=== PATIENT | female | born 1995 | race Caucasian/White ===

== ENCOUNTER 2017-04-29 15:12 | Emergency (ER) | payer SELFPAY ==
[2017-04-29 15:29] VITALS: BP 145/70
[2017-04-29] MEDS ORDERED: METOCLOPRAMIDE HCL ORAL SOLN 10 MG/10 ML UDCUP PO ONE (16:44)
[2017-04-29] MEDS ORDERED: MAG HYDROX/AL HYDROX/SIMETH SUSP 30 ML UDCUP PO ONE (16:44)
[2017-04-29] MEDS ORDERED: LIDOCAINE 2% VISCOUS SOLN 20 ML UDCUP PO ONE (16:44)
[2017-04-29] MEDS ORDERED: FAMOTIDINE 20 MG TABLET PO ONE (16:44)
--- NOTE | 2017-04-29 16:44 | ER Document Report ---
ED Medical Screen (RME) - General Chief Complaint: Abdominal Pain Stated Complaint: ABDOMEN PAIN Time Seen by Provider: 04/29/17 16:38 Notes: rectal bleeding on/off for one month, only when she wipes. denies h/o hemorrhoids. abdominal pain on/off for a couple of months, described as cramping. doesnt have it everyday, notices it the most when she is sleeping. denies chest pain, heart burn, n/v/d/c. last BM: yesterday, nl has been taking motrin for 800mg as needed mayb e once a day but is not taking it daily TRAVEL OUTSIDE OF THE [place] IN LAST 30 DAYS: No - Related Data Allergies/Adverse Reactions: No Known Allergies Allergy (Verified 04/29/17 15:28) Past Medical History Renal/ Medical History: Denies: Hx Peritoneal Dialysis Physical Exam - Vital signs Vitals: Temp Pulse Resp BP Pulse Ox 98.6 F 61 20 145/70 H 99 04/29/17 15:28 04/29/17 15:28 04/29/17 15:28 04/29/17 15:28 04/29/17 15:28 Course - Vital Signs Vital signs: Temp Pulse Resp BP Pulse Ox 98.6 F 61 20 145/70 H 99 04/29/17 15:28 04/29/17 15:28 04/29/17 15:28 04/29/17 15:28 04/29/17 15:28
[2017-04-29] MEDS ORDERED: DICYCLOMINE HCL 20 MG TABLET PO ONE (18:32)
--- NOTE | 2017-04-29 19:15 | ER Document Report ---
HPI - HPI Patient complains to provider of: abdominal pain and occaisional rectal bleeding Pain Level: 3 Context: patient is a 21 year old female who presents to the ED complaining of abdominal cramping and rectal pain that has been on/off for 4-5 weeks. denies n/v/d/c. Admits to firm stools with occasional blood on the toilet paper but otherwise denies rectal pain when she isnt trying to have a BM. LMP was last week. admits to taking motrin for her menstrual cramps and as needed. states her belly pain is irritated with that. States she has intermittent cramping that does not last longer than a minute. denies any heart burn or chest pain - CARDIOVASCULAR Cardiovascular: DENIES: Chest pain - DERM Skin Color: Normal Past Medical History - Social History Smoking Status: Never Smoker Chew tobacco use (# tins/day): No Frequency of alcohol use: Occasional Drug Abuse: None Family History: Reviewed & Not Pertinent Patient has suicidal ideation: No Patient has homicidal ideation: No Renal/ Medical History: Denies: Hx Peritoneal Dialysis Surgical Hx: Negative - Immunizations Hx Diphtheria, Pertussis, Tetanus Vaccination: No Vertical Provider Document - CONSTITUTIONAL Notes: PHYSICAL EXAM GENERAL: Alert, interacts well. LUNGS: Clear to auscultation bilaterally, no wheezes, rales, or rhonchi. No respiratory distress. HEART: Regular rate and rhythm. No murmurs, gallops, or rubs. ABDOMEN: Soft, nondistended, nontender. No guarding, rebound, or rigidity.. Bowel sounds present in all 4 quadrants. Rectal: nontender on digital exam no evidence of impacted stool, no hemorrhoids , no fissure SKIN: Warm, dry, normal turgor. No rashes or lesions noted. - INFECTION CONTROL TRAVEL OUTSIDE OF THE [place] IN LAST 30 DAYS: No - RESPIRATORY O2 Sat by Pulse Oximetry: 99 Course - Re-evaluation Re-evalutation: 04/29/17 20:29 After performing a Medical Screening Examination, I estimate there is LOW risk for ACUTE APPENDICITIS, BOWEL OBSTRUCTION, ACUTE CHOLECYSTITIS, PERFORATED DIVERTICULITIS, INCARCERATED HERNIA, PANCREATITIS, PELVIC INFLAMMATORY DISEASE, PERFORATED ULCER, ECTOPIC , or TUBO-OVARIAN ABSCESS, thus I consider the discharge disposition reasonable. Also, there is no evidence or peritonitis , sepsis, or toxicity. I have reevaluated this patient multiple times and no significant life threatening changes are noted. The patient and I have discussed the diagnosis and risks, and we agree with discharging home with close follow-up with the understanding that symptoms and presentations can change. We also discussed returning to the Emergency Department immediately if new or worsening symptoms occur. We have discussed the symptoms which are most concerning (e.g., bloody stool, fever, changing or worsening pain, vomiting) that necessitate immediate return. - Vital Signs Vital signs: Temp Pulse Resp BP Pulse Ox 98.6 F 61 14 145/70 H 99 04/29/17 15:28 04/29/17 15:28 04/29/17 16:43 04/29/17 15:28 04/29/17 15:28 Discharge - Discharge Clinical Impression: Epigastric abdominal pain Condition: Good Disposition: HOME, SELF-CARE Instructions: Abdominal Pain ([facility]), Rectal Bleeding, Unclear Cause ([facility]) Prescriptions: Ondansetron [Zofran Odt 4 mg Tablet] 1 - 2 tab PO Q4H PRN #15 tab.rapdis PRN Reason: For Nausea/Vomiting Referrals: [facility] [Provider Group] - Follow up in 1 week
== END 2017-04-29 19:32 | disposition home or self-care (01) ==
LOC: ER 15:12
DX: R10.13 Epigastric pain (principal); K62.89 Other specified diseases of anus and rectum
CPT/HCPCS: 99283; J3490 ×2

== ENCOUNTER 2017-05-03 19:17 | Emergency (ER) | payer SELFPAY ==
[2017-05-03 19:35] VITALS: BP 115/76
--- NOTE | 2017-05-03 19:56 | ER Document Report ---
ED Medical Screen (RME) - General Chief Complaint: Abdominal Pain Stated Complaint: ABDOMINAL PAIN Time Seen by Provider: 05/03/17 19:48 Notes: Patient is a 21 year old female presenting to the emergency department for abdominal pain. Patient's pain is constant and has been present for about 1 month. Patient states she takes 800 mg ibuprofen every 3 hours daily. Patient states her pain is intermittent and changes in where it is. Patient denies any bloody stools like she had in the past. Patient's pain currently is 3/5 and is dull and achy. Patient's pain for this episode has been present for about 30 minutes. Patient states her pain is relieved when she takes ibuprofen and so that is why she takes it. Patient does not have a bowel movement every day and sometimes has diarrhea and sometimes has hard round stools. Patient states she started taking Colace which was recommended on her last visit. Patient was seen on 04/29/17 for similar symptoms. TRAVEL OUTSIDE OF THE [place] IN LAST 30 DAYS: No - Related Data Allergies/Adverse Reactions: No Known Allergies Allergy (Verified 04/29/17 15:28) Past Medical History Renal/ Medical History: Denies: Hx Peritoneal Dialysis - Immunizations Hx Diphtheria, Pertussis, Tetanus Vaccination: No Physical Exam - Vital signs Vitals: Temp Pulse Resp BP Pulse Ox 98.9 F 73 16 115/76 100 05/03/17 19:28 05/03/17 19:28 05/03/17 19:28 05/03/17 19:28 05/03/17 19:28 - Notes Notes: GENERAL: Alert, interacts well. No acute distress. LUNGS: Clear to auscultation bilaterally, no wheezes, rales, or rhonchi. No respiratory distress. HEART: Regular rate and rhythm. No murmurs, gallops, or rubs. ABDOMEN: Soft, non-tender. Non-distended. Bowel sounds present in all 4 quadrants. Course - Vital Signs Vital signs: Temp Pulse Resp BP Pulse Ox 98.9 F 73 16 115/76 100 05/03/17 19:28 05/03/17 19:28 05/03/17 19:28 05/03/17 19:28 05/03/17 19:28 Scribe Documentation - Scribe Written by Flako:: Flako Thayer 05/03/17 19:49 acting as scribe for :: Sarath
--- NOTE | 2017-05-03 19:59 | ER Document Report ---
ED GI/ - General Mode of Arrival: Ambulatory Information source: Patient TRAVEL OUTSIDE OF THE [place] IN LAST 30 DAYS: No - HPI Patient complains to provider of: Abdominal pain Onset: Other - Refer to HPI notes - General Chief Complaint: Abdominal Pain Stated Complaint: ABDOMINAL PAIN Time Seen by Provider: 05/03/17 19:48 Notes: Patient is a 21 year old female presenting to the emergency department for abdominal pain. Patient's pain is constant and has been present for about 1 month. Patient states she takes 800 mg ibuprofen every 3 hours daily. Patient states her pain is intermittent and changes in where it is. Patient denies any bloody stools like she had in the past. Patient's pain currently is 3/5 and is dull and achy. Patient's pain for this episode has been present for about 30 minutes. Patient states her pain is relieved when she takes ibuprofen and so that is why she takes it. Patient does not have a bowel movement every day and sometimes has diarrhea and sometimes has hard round stools. Patient states she started taking Colace which was recommended on her last visit. Patient was seen on 04/29/17 for similar symptoms. (TESS CASEY) - Related Data Allergies/Adverse Reactions: No Known Allergies Allergy (Verified 04/29/17 15:28) Past Medical History - General Information source: Patient - Social History Smoking Status: Never Smoker Cigarette use (# per day): No Chew tobacco use (# tins/day): No Frequency of alcohol use: Occasional Drug Abuse: None Family History: None Patient has suicidal ideation: No Patient has homicidal ideation: No Surgical Hx: Negative - Immunizations Hx Diphtheria, Pertussis, Tetanus Vaccination: No Review of Systems - Review of Systems Constitutional: No symptoms reported EENT: No symptoms reported Cardiovascular: No symptoms reported Respiratory: No symptoms reported Gastrointestinal: See HPI, Abdominal pain Genitourinary: No symptoms reported Female Genitourinary: No symptoms reported Musculoskeletal: No symptoms reported Skin: No symptoms reported Hematologic/Lymphatic: No symptoms reported Neurological/Psychological: No symptoms reported -: Yes All other systems reviewed and negative Physical Exam - Vital signs Vitals: Temp Pulse Resp BP Pulse Ox 98.9 F 73 16 115/76 100 05/03/17 19:28 05/03/17 19:28 05/03/17 19:28 05/03/17 19:28 05/03/17 19:28 - Notes Notes: GENERAL: Alert, interacts well. No acute distress. No evidence of discomfort. HEAD: Normocephalic, atraumatic. EYES: Pupils equal, round, and reactive to light. Extraocular movements intact. ENT: Oral mucosa moist, tongue midline. NECK: Full range of motion. Supple. Trachea midline. LUNGS: Clear to auscultation bilaterally, no wheezes, rales, or rhonchi. No respiratory distress. HEART: Regular rate and rhythm. No murmurs, gallops, or rubs. ABDOMEN: Soft, non-tender. Non-distended. Bowel sounds present in all 4 quadrants. EXTREMITIES: Moves all 4 extremities spontaneously. No edema. No cyanosis. NEUROLOGICAL: Alert and oriented x3. Normal speech. PSYCH: Normal affect, normal mood. SKIN: Warm, dry, normal turgor. No rashes or lesions noted. (TESS CASEY) Course - Re-evaluation Re-evalutation: 05/03/17 21:03 Patient is to have blood in her stool, has not had any blood in her stool for about a week. Abdominal exam is benign. At present I do not feel any blood work will add to the evaluation of this patient who has had chronic abdominal pain intermittently every day for the past 4-5 months per the patient. Discussed with the patient that certainly taking ibuprofen every single day could cause some of her abdominal pain in the form of gastritis but she could also be having pain from gas or possibly from constipation. Recommended that she stop taking the ibuprofen, drink plenty of fluids, start taking MiraLAX and follow up with a japanese interpreter should stopping the ibuprofen and start the MiraLAX not improve her pain. Patient will return to the emergency department should blood in her stool return or she develop any hematemesis. (GARRISON DELGADO) - Vital Signs Vital signs: Temp Pulse Resp BP Pulse Ox 98.9 F 73 16 115/76 100 05/03/17 19:28 05/03/17 19:28 05/03/17 19:28 05/03/17 19:28 05/03/17 19:28 Discharge - Discharge Clinical Impression: Diffuse abdominal pain Condition: Stable Disposition: HOME, SELF-CARE Additional Instructions: Today your abdomen is benign, this means that based off of my exam I do not feel that you need surgery or CAT scan. I suspect some of your pain may be coming from constipation. Please dissolve 1 scoop of MiraLAX in a glass of water once a day to treat constipation. You may increase to twice a day if needed to create soft bowel movements and you may decrease to every other day if you develop diarrhea. Please keep a diary of what foods to eat and whether or not causes pain. If you continue to have pain after 2 weeks of soft bowel movements please make a follow-up appointment with a japanese interpreter. Referrals: DHRUV TINEO MD [ACTIVE STAFF] - Follow up as needed Scribe Attestation: 05/03/17 21:04 I personally performed the services described in the documentation, reviewed and edited the documentation which was dictated to the scribe in my presence, and it accurately records my words and actions. (GARRISON DELGADO) Scribe Documentation - Scribe Written by Flako:: Flako Thayer 05/03/171957 acting as scribe for :: Sarath
== END 2017-05-03 20:55 | disposition home or self-care (01) ==
LOC: ER 19:17
DX: R10.9 Unspecified abdominal pain (principal)
CPT/HCPCS: 99283